=== PATIENT | female | born 1955 | race African-American/Black ===

== ENCOUNTER 2017-06-04 07:30 | Observation (INO) | payer OTHER ==
[~2017-06-04] VITALS: Ht 160 cm; Wt 123.3 kg
[~2017-06-04 07:30] MED LIST: HYDR-3498 PO
[2017-06-04 20:28] VITALS: Ht 160 cm; Wt 123.3 kg
[2017-06-04 21:10] VITALS: BP 122/62; RESP 16
[2017-06-04] MEDS ORDERED: CYCL-319 PO (21:40)
--- NOTE | 2017-06-04 21:51 | HP ---
Date/Time of Note Date/Time of Note DATE: 06/04/17 TIME: 21:51 Assessment/Plan VTE Prophylaxis VTE Prophylaxis Intervention: LMWH Assessment/Plan Chief Complaint/Hosp Course This is a 61 year female was given be admitted to the [facility] for: #1 intractable back pain: There is to be nontraumatic back pain in nature. Patient has a previous history of spinal surgery history of leukemia which does raise concern for weakness of her spinal bones as well as possible concern for metastasis. At the current time will order an MRI of the lumbar spine with and without contrast. Will provide IV pain medication control with Dilaudid every 4 hours as needed and oral Percocet. Will also provide the patient with Flexeril. Will obtain a orthopedic surgery consult. PT evaluation. #2 history of leukemia: Not undergoing any active treatment at this time. Please see #1 further information. #3 morbid obesity: We will check a hemoglobin A1c, lipids, TSH #4 right meniscus injury: Patient has meniscal surgery scheduled for next week and she was supposed to have her preop clearance today as an outpatient. Will order preop labs as well as an EKG and consider evaluation for surgical clearance in the a.m. #5 DVT and GI prophylaxis: Lovenox, acid consuelo Further treatment strategy will be implemented as per the clinical Problems: HPI/ROS Admit Date/Time Admit Date/Time Jun 04, 2017 at 07:30 Hx of Present Illness Chief complaint: Intractable back pain, difficulty walking This is a 61-year-old female who was transferred from [facility] for intractable lower back pain radiating down to bilateral lower legs. Patient states that she was unable to walk secondary to her pain. Her pain is 10 out of 10 and worse with movement. She states that she has had previously pain radiating down her right leg, however at this time patient states that she has pain in a bandlike sensation along her lower back with pain radiating down her legs posteriorly as well as anteriorly on her pelvis. She denies any urinary incontinence or saddle anesthesia. Patient states that she has had previous history of back surgeries. 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 She has a previous history of leukemia. She also has been diagnosed with sciatic nerve pain for this feels worse than the pain at this time. She is going to be undergoing the meniscal surgery for her right meniscus in 1 week and she was supposed to go today to have clearance for the surgery however she was unable to walk she taken to the ED via ambulance. She also states she had an MRI of her lumbar spine but she does not know what the results are which occurred approximately 2 weeks ago. And today and her dysfunction are a lot worse and there were 2 weeks ago. She did receive Decadron 10mg, morphine 8mg, and Dilaudid 1 mg for pain control prior to being transferred to [facility]. Allergies: Sulfa Patient: See JENNIFER TAYLOR Const: Negative for fever, chills, weight gain or weight loss, fatigue, or diaphoresis Eyes : No pain discharge or redness or change in visual acuity ENT: No pain, sore throat, congestion, congestion, dysphagia or discharge Respiratory: No shortness of breath, cough, sputum, wheezing, or pleuritic pain Cardiovascular: No chest pain, palpitation, PND, or edema GI : no change in appetite, abdominal pain, nausea, vomiting, diarrhea, constipation, or change in the color his stool Genitourinary: No dysuria, hematuria, flank pain , discharge or CVA tenderness Musculoskeletal: As per HPI Skin: No rash, bruising or hives Neuro: As per HPI Endocrine: No polyuria, polydipsia, temperature intolerance Psych: No hallucination, depression, anxiety or suicidal ideation PMH/Family/Social Past Medical History Leukemia, 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 HEENT: Atraumatic, normocephalic. The pupils are equal, round and reactive. Extraocular motor are intact Neck: Supple with full range of motion. No rigidity or meningismus Chest: Nontender Lungs: Clear to auscultation bilaterally no crackles rales or wheezing Heart: Normal S1-S2, Regular rhythm and rate. No murmur, S3, or S4 Abdomen: Soft , nontender, nondistended , bowel sounds are present. No guarding no rebound tenderness , No masses or organomegaly. No costovertebral temporal angle mass Musculoskeletal: Tenderness to palpation along the lower lumbar spine as well as a bilateral paravertebral muscles at the level of the lumbar spine. Extremities: Decreased range of motion of the bilateral lower extremities, patient unable to get in a seated or standing position secondary to pain Neurologic: Normal mental status, speech normal, cranial nerves II through XII are intact, motor and sensory are intact, Additional Comments Lab results from transfer facility as follows BMP sodium 142, potassium 4.4 chloride 106 CO2 26 BUN 16 creatinine 0.72 glucose 139 calcium 9.1 CBC hemoglobin 13.4 hematocrit 40.1 platelets 157, white blood cell count 6.1 JACK ABRAMS Jun 04, 2017 21:51
[2017-06-04] MEDS ORDERED: HYDROmorphONE 1 MG/ML SYG IV PRN (22:00)
[2017-06-04] MEDS ORDERED: CYCLOBENZAPRINE 10 MG TAB PO PRN (22:00)
[2017-06-04] MEDS: DOCUSATE SODIUM 100 MG CAP PO SCH (22:11)
[2017-06-04 23:03] LABS: INR 1.16; PROTIME 14.8 Sec (12.2-14.2); PT RATIO 1.2
[2017-06-04 23:04] LABS: PARTIAL THROMBOPLASTIN TIME 31.5 Sec (25.0-35.0)
[2017-06-04] MEDS: CYCLOBENZAPRINE 10 MG TAB PO PRN (23:11)
[2017-06-05] MEDS: ONDANSETRON 4 MG INJ IV PRN (00:13)
[2017-06-05] MEDS: DIPHENHYDRAMINE 25 MG CAP PO PRN ×3 (00:45→22:57)
[2017-06-05] MEDS: HYDROmorphONE 1 MG/ML SYG IV PRN ×6 (01:30→22:50)
[2017-06-05] MEDS ORDERED: ACETAMINOPHEN 325 MG TAB PO PRN (02:30)
[2017-06-05 05:22] VITALS: BP 111/64; RESP 18
[2017-06-05 05:54] LABS: HEMATOCRIT 39.6 % (37.0-47.0); HEMOGLOBIN 12.8 g/dl (12.0-16.0); LYMPHOCYTES # 0.9 10^3/ul (0.8-2.9); LYMPHOCYTES % 14.3 % (15.0-51.0); MEAN CORPUSCULAR HEMOGLOBIN 29.2 pg (29.0-33.0); MEAN CORPUSCULAR HGB CONC 32.3 g/dl (32.0-37.0); MEAN CORPUSCULAR VOLUME 90.2 fl (82.0-101.0); MEAN PLATELET VOLUME 10.4 fl (7.4-10.4); MONOCYTE # 0.2 10^3/ul (0.3-0.9); MONOCYTES % 3.3 % (0.0-11.0); NEUTROPHILS % 82.2 % (39.0-77.0); PLATELET COUNT 169 10^3/UL (140-415); RED BLOOD COUNT 4.39 10^6/ul (4.20-5.40); RED CELL DISTRIBUTION WIDTH 13.1 % (11.5-14.5); WHITE BLOOD COUNT 6.4 10^3/ul (4.8-10.8)
[2017-06-05 06:22] LABS: ALBUMIN/GLOBULIN RATIO 1.08; BILIRUBIN,INDIRECT 0.3 mg/dl (0-1.1); BILIRUBIN,TOTAL 0.3 mg/dl (0.2-1.3); CALCIUM 9.1 mg/dl (8.4-10.2); CHOL/HDL RATIO 3.9 RATIO; CREATININE 0.82 mg/dl (0.44-1.00); MAGNESIUM 2.2 mg/dl (1.7-2.5); POTASSIUM 4.5 mmol/L (3.5-5.1); TOTAL PROTEIN 7.7 g/dl (6.1-8.1)
[2017-06-05 07:00] VITALS: BP 111/60; PULSE 64; RESP 18
[2017-06-05 07:34] LABS: THYROID STIMULATING HORMONE 0.207 MIU/L (0.465-4.680)
[2017-06-05] MEDS: BISACODYL (EC) 5 MG TAB PO SCH (08:38)
[2017-06-05] MEDS: OXYCODONE/ACETAMINOPHEN (10/325) TAB PO PRN (08:38)
[2017-06-05] MEDS: FAMOTIDINE 20 MG TAB PO SCH ×2 (08:38→22:50)
[2017-06-05] MEDS: ENOXAPARIN 40 MG/0.4 ML SYG SC SCH (08:40)
[2017-06-05] MEDS: DOCUSATE SODIUM 100 MG CAP PO SCH ×2 (10:23→22:50)
[2017-06-05 12:36] VITALS: BP 110/61; RESP 20
--- NOTE | 2017-06-05 16:58 | PN ---
Date/Time of Note Date/Time of Note DATE: 06/05/17 TIME: 16:47 Assessment/Plan VTE Prophylaxis VTE Prophylaxis Intervention: LMWH Lines/Catheters IV Catheter Type (from Nrsg): Saline Lock Assessment/Plan Assessment/Plan 1. 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 Pruritus - Patient states has had pain medication in the past and does not believe this is contributing - Benadryl ordered - If persists will need to readjust her medications 3. H/o leukemia - she was treated 12 years ago and in remission but always concerns of reoccurrence in spine 4. Morbid obesity - Patient aware she needs to lose weight and requesting nutrition consult 5. Left meniscus injury - Scheduled for next Friday Subjective 24 Hr Interval Summary Free Text/Dictation patient seen and examined. Experiencing pain when adjusting herself in the bed. states its a sharp pain that shoots down her right leg but denies any bowel or bladder incontinence. Patient is a very active woman and frustrated that she is being debilitated by her back pain. Exam/Review of Systems Vital Signs Vitals Vital Signs Date Time Temp Pulse Resp B/P Pulse Ox O2 Delivery O2 Flow Rate FiO2 06/05/17 12:36 97.6 64 20 110/61 96 06/05/17 07:00 Room Air Intake and Output 06/04/17 06/04/17 06/05/17 15:00 23:00 07:00 Intake Total 400 ml Balance 400 ml Exam General: moderate distress with movement, pleasant and cooperative HEENT: NC/AT, PERRL, EOM intact Neck: Supple with full range of motion. No rigidity or meningismus Lungs: Clear to auscultation bilaterally no crackles rales or wheezing Heart: Normal S1-S2, Regular rhythm and rate. No murmur Abdomen: Soft , nontender, nondistended , No guarding no rebound tenderness , Musculoskeletal: Tenderness to palpation along the lower lumbar spine, tenderness of bilateral paravertebral muscles at the level of the lumbar spine. Extremities: Decreased range of motion of the bilateral lower extremities, Neurologic: Normal mental status, speech normal, cranial nerves II through XII are intact, motor and sensory are intact, reflexes diminished RLE Results Result Diagram: 06/05/17 0509 06/05/17 0509 Results 24 hrs Laboratory Tests Test 06/04/17 22:42 06/05/17 05:09 Prothrombin Time 14.8 H Prothrombin Time Ratio 1.2 INR International Normalized Ratio 1.16 Activated Partial Thromboplast Time 31.5 White Blood Count 6.4 Red Blood Count 4.39 Hemoglobin 12.8 Hematocrit 39.6 Mean Corpuscular Volume 90.2 Mean Corpuscular Hemoglobin 29.2 Mean Corpuscular Hemoglobin Concent 32.3 Red Cell Distribution Width 13.1 Platelet Count 169 Mean Platelet Volume 10.4 Neutrophils % 82.2 H Lymphocytes % 14.3 L Monocytes % 3.3 Eosinophils % 0.0 Basophils % 0.0 Nucleated Red Blood Cells % 0.0 Neutrophils # (Manual) 5.3 Lymphocytes # 0.9 Monocytes # 0.2 L Eosinophils # 0.0 Basophils # 0.0 Nucleated Red Blood Cells # 0.0 Sodium Level 143 Potassium Level 4.5 Chloride Level 109 Carbon Dioxide Level 24 Anion Gap 15 Blood Urea Nitrogen 21 H Creatinine 0.82 Glucose Level 149 Hemoglobin A1c 5.7 Calcium Level 9.1 Magnesium Level 2.2 Total Bilirubin 0.3 Direct Bilirubin 0.00 Indirect Bilirubin 0.3 Aspartate Amino Transf (AST/SGOT) 17 Alanine Aminotransferase (ALT/SGPT) 23 Alkaline Phosphatase 80 Total Protein 7.7 Albumin 4.0 Globulin 3.70 H Albumin/Globulin Ratio 1.08 Triglycerides Level 56 Cholesterol Level 211 H LDL Cholesterol, Calculated 147 HDL Cholesterol 53 Cholesterol/HDL Ratio 3.9 Thyroid Stimulating Hormone (TSH) 0.207 L Medications Medications Current Medications Ondansetron HCl (Zofran Inj) 4 mg Q6H PRN IV NAUSEA AND/OR VOMITING Last administered on 06/05/17 00:13; Admin Dose 4 MG; Start 06/04/17 at 22:00 Docusate Sodium (Colace) 100 mg Q12H PO Last administered on 06/05/17 10:23; Admin Dose 100 MG; Start 06/04/17 at 22:00 Bisacodyl (Dulcolax) 5 mg DAILY PO Last administered on 06/05/17 08:38; Admin Dose 5 MG; Start 06/05/17 at 09:00 Famotidine (Pepcid) 20 mg Q12 PO Last administered on 06/05/17 08:38; Admin Dose 20 MG; Start 06/05/17 at 09:00 Oxycodone/ Acetaminophen (Endocet (10/ 325)) 1 tab Q6H PRN PO PAIN LEVEL 4-6 Last administered on 06/05/17 08:38; Admin Dose 1 TAB; Start 06/04/17 at 22:00 Enoxaparin Sodium (Lovenox) 40 mg DAILY SC Last administered on 06/05/17 08:40 ; Admin Dose 40 MG; Start 06/05/17 at 09:00 Cyclobenzaprine HCl (Flexeril) 10 mg Q8H PRN PO MUSCLE SPASMS Last administered on 06/04/17 23:11; Admin Dose 10 MG; Start 06/04/17 at 22:00 Hydromorphone HCl (Dilaudid) 1 mg Q3H PRN IV SEVERE PAIN LEVEL 7-10 Last administered on 06/05/17 13:55; Admin Dose 1 MG; Start 06/05/17 at 00:40 Acetaminophen (Tylenol Tab) 650 mg Q6H PRN PO PAIN AND OR ELEVATED TEMP; Start 06/05/17 at 02:30 Diphenhydramine HCl (Benadryl) 25 mg Q4 PRN PO ITCHING; Start 06/05/17 at 17:00 ; Status RUBÉN VICTOR MD Jun 05, 2017 16:58
[2017-06-05 17:03] VITALS: BP 103/59; RESP 20
--- NOTE | 2017-06-05 19:35 | RADRPT ---
Vent Rate: 61 bpm RR Interval: 0 msec FL Interval: 164 msec QRS Duration: 86 msec QT Interval: 416 msec QTC Interval: 418 msec P-R-T [place]: 58 - 31 - 39 degrees Normal sinus rhythm Minimal voltage criteria for LVH, may be normal variant Nonspecific T wave abnormality Abnormal ECG Electronically Signed By: Ac Carey [id number]
[2017-06-05 21:02] VITALS: BP 132/63; RESP 16
--- NOTE | 2017-06-05 23:23 | RADRPT ---
PROCEDURE: MRI lumbar spine with and without contrast CLINICAL INDICATION: Intractable back pain with ambulatory dysfunction. Bilateral lower extremity radiculopathy. Back surgery 2003 and 2004. TECHNIQUE: An MRI of the lumbar spine was performed on a 1.5 tank scanner utilizing the followin g sequences: pre and post contrast sagittal and axial T1 weighted, sagittal and axial T2 weighted, a nd sagittal T2 weighted with fat saturation. 10 ml of Magnevist were given intravenously without com plication. COMPARISON: No prior MRI for comparison. FINDINGS: There is a normal lordosis of the lumbar spine. No vertebral body subluxation is evident. The verteb ral bodies are normal in height and signal intensity. The conus medullaris is visible at the L1 lev el, and is normal in appearance. The postcontrast images show no abnormal enhancement. T12 - L1: Mild disc desiccation and loss of disc height with Schmorl's node formation within the kline perior small subarticular disc protrusion measuring 1-2 mm in AP dimension. Mild facet joint arthrop athy. Moderate to severe left foraminal stenosis without right foraminal or central canal stenosis. Mild facet joint arthropathy. L1 - L2: Mild disc desiccation with preservation of disc height. Minimal posterior disc bulging. Mo derate hypertrophic facet joint arthropathy. Mild to moderate bilateral foraminal stenosis. No centr al canal stenosis. Small facet joint effusions. L2-L3: Moderate disc desiccation and mild loss of disc height with Schmorl's node formation in the superior endplate of L3. Minimal broad-based right subarticular disc protrusion measuring 2 mm in AP dimension. Mild bilateral subarticular recess narrowing possible impingement upon descending L3 ner ve roots bilaterally. No central canal stenosis. Mild to moderate bilateral foraminal stenosis. No c entral canal stenosis. L3 - L4: Severe disc desiccation loss of disc height with broad-based central to left subarticular d isc osteophyte complex formation resulting in severe left subarticular recess and foraminal stenosis with impinging upon the descending L4 and exiting L3 nerve roots. Right foraminal 7 mm disc osteoph yte complex resulting in severe right foraminal stenosis and moderate subarticular recess stenosis r ight L3 and likely descending L4 nerve roots. Severe hypertrophic facet joint arthropathy. Mild to m oderate central canal stenosis of 12 mm in greatest transaxial dimension. L4 - L5: Grade 1 anterolisthesis of the L4-L5 with intact bipedicular vertebral body screws, fusion rods, and interbody bone graft. Severe hypertrophic facet joint arthropathy and severe central yehuda l stenosis of approximately 4 mm in greatest transaxial dimension. Mild bilateral foraminal stenosis . L5 - S1: Intact bipedicular vertebral body screws and fusion rods with decompression laminectomy and hypertrophic facet joint arthropathy. No central canal stenosis. Severe hypertrophic facet joint ar thropathy with severe bilateral foraminal stenosis. Postsurgical changes of the midline posterior soft tissues IMPRESSION: 1. Lumbar discectomy with interbody fusion and intact by pedicular vertebral body screws and fusion rods at L4-L5. Grade 1 anterolisthesis of L4-L5 with intact interbody bone graft. Severe central ca nal stenosis with mild bilateral foraminal stenosis. 2. Intact bipedicular vertebral body screws and fusion rods with decompression laminectomy at L5-S1 . Severe hypertrophic facet joint arthropathy and severe bilateral foraminal stenosis without centra l canal stenosis. 3. Degenerative disc bulging with the broad-based central to left subarticular disc osteophyte comp chon and 7 mm right foraminal disc osteophyte complex resulting in severe left subarticular recess an d foraminal stenosis and moderate right subarticular and severe right foraminal stenosis as describe d in detail above. 4. Minimal broad-based right subarticular protrusion at L2-L3 with bilateral subarticular recess shiva nosis resulting in mild to moderate bilateral foraminal stenosis without central canal stenosis. 5. No abnormal postcontrast enhancement. RPTAT:AAJJ Physician Sunitha Date Time Electronically viewed and signed by Physician Sunitha on 06/05/2017 23:23 MONY/
[2017-06-06] MEDS: HYDROmorphONE 1 MG/ML SYG IV PRN ×6 (02:10→21:12)
[2017-06-06 03:16] VITALS: BP 114/56; RESP 16
[2017-06-06] MEDS: DIPHENHYDRAMINE 25 MG CAP PO PRN ×2 (03:26→08:56)
[2017-06-06 06:41] LABS: BASOPHILS % 0.1 % (0.0-2.0); EOSINOPHILS % 0.3 % (0.0-7.0); HEMATOCRIT 37.2 % (37.0-47.0); HEMOGLOBIN 11.8 g/dl (12.0-16.0); LYMPHOCYTES # 2.8 10^3/ul (0.8-2.9); LYMPHOCYTES % 37.8 % (15.0-51.0); MEAN CORPUSCULAR HEMOGLOBIN 29.3 pg (29.0-33.0); MEAN CORPUSCULAR HGB CONC 31.7 g/dl (32.0-37.0); MEAN CORPUSCULAR VOLUME 92.3 fl (82.0-101.0); MEAN PLATELET VOLUME 10.4 fl (7.4-10.4); MONOCYTE # 0.6 10^3/ul (0.3-0.9); MONOCYTES % 7.8 % (0.0-11.0); NEUTROPHILS % 53.7 % (39.0-77.0); PLATELET COUNT 159 10^3/UL (140-415); RED BLOOD COUNT 4.03 10^6/ul (4.20-5.40); RED CELL DISTRIBUTION WIDTH 13.7 % (11.5-14.5); WHITE BLOOD COUNT 7.5 10^3/ul (4.8-10.8)
[2017-06-06 07:11] LABS: ALBUMIN 3.8 g/dl (3.3-4.9); CALCIUM 8.5 mg/dl (8.4-10.2); CREATININE 0.93 mg/dl (0.44-1.00); PHOSPHORUS 4.6 mg/dl (2.5-4.9); POTASSIUM 4.3 mmol/L (3.5-5.1)
[2017-06-06 07:56] VITALS: BP 102/56; RESP 17
[2017-06-06] MEDS: BISACODYL (EC) 5 MG TAB PO SCH (08:55)
[2017-06-06] MEDS: NACL 0.9% 3 ML SYG IV SCH ×2 (08:55→12:42)
[2017-06-06] MEDS: FAMOTIDINE 20 MG TAB PO SCH ×2 (08:55→21:11)
[2017-06-06] MEDS: ENOXAPARIN 40 MG/0.4 ML SYG SC SCH (08:59)
[2017-06-06] MEDS: DOCUSATE SODIUM 100 MG CAP PO SCH ×2 (09:01→21:12)
[2017-06-06] MEDS: DIPHENHYDRAMINE 50 MG INJ IV PRN ×3 (14:16→22:01)
[2017-06-06] MEDS: CYCLOBENZAPRINE 10 MG TAB PO PRN ×2 (14:30→22:43)
[2017-06-06 15:40] VITALS: BP 139/67; RESP 18
[2017-06-06] MEDS: METHYLPREDNISOLONE 125 MG INJ IV SCH (15:43)
[2017-06-06] MEDS: CAPSAICIN 0.025% 60 GM CR TOP PRN ×2 (15:44→22:15)
--- NOTE | 2017-06-06 17:50 | PN ---
Date/Time of Note Date/Time of Note DATE: 06/06/17 TIME: 17:45 Assessment/Plan VTE Prophylaxis VTE Prophylaxis Intervention: LMWH Lines/Catheters IV Catheter Type (from Nrsg): Saline Lock Assessment/Plan Assessment/Plan 1. 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 Grade 1 anterolisthesis of L4-L5 with intact interbody bone graft. Severe central canal stenosis with mild bilateral foraminal stenosis. Intact bipedicular vertebral body screws and fusion rods with decompression laminectomy at L5-S1. Severe hypertrophic facet joint arthropathy and severe bilateral foraminal stenosis without central canal stenosis. Degenerative disc bulging with the broad-based central to left subarticular disc osteophyte complex and 7 mm right foraminal disc osteophyte complex resulting in severe left subarticular recess and foraminal stenosis and moderate right subarticular and severe right foraminal stenosis as described in detail above. Minimal broad-based right subarticular protrusion at L2-L3 with bilateral subarticular recess stenosis resulting in mild to moderate bilateral foraminal stenosis without central canal stenosis. - Started on Solumedrol for disc bulge and Ketoralac as antiinflammatory - Continue pain control, if need be will consult pain management for assistance for senior living control - Will order PT eval 2. Pruritus - Patient states has had pain medication in the past and does not believe this is contributing - Benadryl IV with relief 3. H/o leukemia - she was treated 12 years ago and in remission but always concerns of reoccurrence in spine 4. Morbid obesity - Patient aware she needs to lose weight and requesting nutrition consult 5. Left meniscus injury - Scheduled for next Friday - Needs CXR for preop Subjective 24 Hr Interval Summary Free Text/Dictation Patient seen and examined. States shes feeling a little better and stronger as she is able to sit on the side of the bed today. She is anxious to get moving with physical therapy. Denies any loss of bladder or bowel. No new acute issues or overnight events. Exam/Review of Systems Vital Signs Vitals Vital Signs Date Time Temp Pulse Resp B/P Pulse Ox O2 Delivery O2 Flow Rate FiO2 06/06/17 15:40 98.0 63 18 139/67 98 06/05/17 07:00 Room Air Intake and Output 06/05/17 06/05/17 06/06/17 15:00 23:00 07:00 Intake Total 840 ml 620 ml Balance 840 ml 620 ml Exam General: mild distress with movement, pleasant and cooperative HEENT: NC/AT, PERRL, EOM intact Neck: Supple with full range of motion. No rigidity or meningismus Lungs: Clear to auscultation bilaterally no crackles rales or wheezing Heart: Normal S1-S2, Regular rhythm and rate. No murmur Abdomen: Soft , nontender, nondistended , No guarding no rebound tenderness , Musculoskeletal: Tenderness to palpation along the lower lumbar spine, tenderness of bilateral paravertebral muscles at the level of the lumbar spine. Extremities: Decreased range of motion of the bilateral lower extremities, Neurologic: Normal mental status, speech normal, cranial nerves II through XII are intact, motor and sensory are intact, reflexes diminished RLE Results Result Diagram: 06/06/17 0548 06/06/17 0548 Results 24 hrs Laboratory Tests Test 06/06/17 05:48 White Blood Count 7.5 Red Blood Count 4.03 L Hemoglobin 11.8 L Hematocrit 37.2 Mean Corpuscular Volume 92.3 Mean Corpuscular Hemoglobin 29.3 Mean Corpuscular Hemoglobin Concent 31.7 L Red Cell Distribution Width 13.7 Platelet Count 159 Mean Platelet Volume 10.4 Neutrophils % 53.7 Lymphocytes % 37.8 Monocytes % 7.8 Eosinophils % 0.3 Basophils % 0.1 Nucleated Red Blood Cells % 0.0 Neutrophils # (Manual) 4.0 Lymphocytes # 2.8 Monocytes # 0.6 Eosinophils # 0.0 Basophils # 0.0 Nucleated Red Blood Cells # 0.0 Sodium Level 139 Potassium Level 4.3 Chloride Level 103 Carbon Dioxide Level 30 Anion Gap 10 # Blood Urea Nitrogen 26 H Creatinine 0.93 Glucose Level 97 # Calcium Level 8.5 Phosphorus Level 4.6 Magnesium Level 2.0 Albumin 3.8 Medications Medications Current Medications Ondansetron HCl (Zofran Inj) 4 mg Q6H PRN IV NAUSEA AND/OR VOMITING Last administered on 06/05/17t 00:13; Admin Dose 4 MG; Start 06/04/17 at 22:00 Docusate Sodium (Colace) 100 mg Q12H PO Last administered on 06/06/17 09:01; Admin Dose 100 MG; Start 06/04/17 at 22:00 Bisacodyl (Dulcolax) 5 mg DAILY PO Last administered on 06/06/17 08:55; Admin Dose 5 MG; Start 06/05/17 at 09:00 Famotidine (Pepcid) 20 mg Q12 PO Last administered on 06/06/17 08:55; Admin Dose 20 MG; Start 06/05/17 at 09:00 Oxycodone/ Acetaminophen (Endocet (10/ 325)) 1 tab Q6H PRN PO PAIN LEVEL 4-6 Last administered on 06/05/17 08:38; Admin Dose 1 TAB; Start 06/04/17 at 22:00 Enoxaparin Sodium (Lovenox) 40 mg DAILY SC Last administered on 06/06/17 08:59 ; Admin Dose 40 MG; Start 06/05/17 at 09:00 Cyclobenzaprine HCl (Flexeril) 10 mg Q8H PRN PO MUSCLE SPASMS Last administered on 06/06/17 14:30; Admin Dose 10 MG; Start 06/04/17 at 22:00 Hydromorphone HCl (Dilaudid) 1 mg Q3H PRN IV SEVERE PAIN LEVEL 7-10 Last administered on 06/06/17 15:49; Admin Dose 1 MG; Start 06/05/17 at 00:40 Acetaminophen (Tylenol Tab) 650 mg Q6H PRN PO PAIN AND OR ELEVATED TEMP; Start 06/05/17 at 02:30 Capsaicin (Theragen) 1 applic TID PRN TOP knee pain Last administered on 15:44; Admin Dose 1 APPLIC; Start 06/05/17 at 17:00 Diphenhydramine HCl (Benadryl) 25 mg Q4H PRN IV ITCHING Last administered on 14:16; Admin Dose 25 MG; Start 06/06/17 at 14:30 Methylprednisolone Sodium Succinate (Solu-Medrol) 60 mg DAILY IV Last administered on 06/06/17 15:43; Admin Dose 60 MG; Start 06/06/17 at 15:30 Nystatin (Nystatin Oint) 1 applic BID TOP ; Start 06/06/17 at 15:30 RUBÉN HAMILTON MD Jun 06, 2017 17:50
[2017-06-06] MEDS: NYSTATIN 15 GM OINT TOP SCH ×2 (17:51→21:12)
[2017-06-06] MEDS: KETOROLAC 30 MG INJ IV SCH ×2 (18:04→23:42)
[2017-06-06 19:50] VITALS: BP 127/76; RESP 20
[2017-06-07] MEDS ORDERED: BISACODYL 10 MG SUPP PR PRN (01:00)
[2017-06-07 02:00] VITALS: BP 124/62; RESP 20
[2017-06-07] MEDS: HYDROmorphONE 1 MG/ML SYG IV PRN ×7 (02:00→23:52)
[2017-06-07] MEDS: CAPSAICIN 0.025% 60 GM CR TOP PRN (03:04)
[2017-06-07] MEDS: DIPHENHYDRAMINE 50 MG INJ IV PRN ×5 (03:05→22:22)
[2017-06-07] MEDS: POLYETHYLENE GLYCOL 17 GM PACKET PO PRN (05:08)
[2017-06-07] MEDS: KETOROLAC 30 MG INJ IV SCH ×3 (05:48→18:00)
[2017-06-07] MEDS: ONDANSETRON 4 MG INJ IV PRN ×2 (05:52→18:50)
[2017-06-07 06:56] LABS: ALBUMIN 3.9 g/dl (3.3-4.9); CALCIUM 9.1 mg/dl (8.4-10.2); CREATININE 0.83 mg/dl (0.44-1.00); MAGNESIUM 2.1 mg/dl (1.7-2.5); PHOSPHORUS 4.9 mg/dl (2.5-4.9); POTASSIUM 4.6 mmol/L (3.5-5.1)
[2017-06-07 08:06] VITALS: BP 111/56; RESP 18
[2017-06-07] MEDS: FAMOTIDINE 20 MG TAB PO SCH ×2 (08:13→20:44)
[2017-06-07] MEDS: NYSTATIN 15 GM OINT TOP SCH ×2 (08:13→20:44)
[2017-06-07] MEDS: BISACODYL (EC) 5 MG TAB PO SCH (08:13)
[2017-06-07] MEDS: METHYLPREDNISOLONE 125 MG INJ IV SCH (08:13)
[2017-06-07] MEDS: ENOXAPARIN 40 MG/0.4 ML SYG SC SCH (08:18)
[2017-06-07] MEDS: DOCUSATE SODIUM 100 MG CAP PO SCH ×2 (09:43→22:22)
[2017-06-07] MEDS: CYCLOBENZAPRINE 10 MG TAB PO PRN (09:45)
[2017-06-07] MEDS: OXYCODONE/ACETAMINOPHEN (10/325) TAB PO PRN (14:07)
[2017-06-07] MEDS: SENNA/DOCUSATE NA (8.6MG/50MG) TAB PO SCH ×2 (15:06→20:44)
[2017-06-07] MEDS: LIDOCAINE 5% PATCH TD SCH (15:06)
--- NOTE | 2017-06-07 15:06 | PN ---
Date/Time of Note Date/Time of Note DATE: 06/07/17 TIME: 15:00 Assessment/Plan VTE Prophylaxis VTE Prophylaxis Intervention: LMWH Lines/Catheters IV Catheter Type (from Nrsg): Saline Lock Assessment/Plan Assessment/Plan 1. Intractable back pain with sciatica - She has a history of spinal surgery with hardware in place that was performed years ago at 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 Grade 1 anterolisthesis of L4-L5 with intact interbody bone graft. Severe central canal stenosis with mild bilateral foraminal stenosis. Intact bipedicular vertebral body screws and fusion rods with decompression laminectomy at L5-S1. Severe hypertrophic facet joint arthropathy and severe bilateral foraminal stenosis without central canal stenosis. Degenerative disc bulging with the broad-based central to left subarticular disc osteophyte complex and 7 mm right foraminal disc osteophyte complex resulting in severe left subarticular recess and foraminal stenosis and moderate right subarticular and severe right foraminal stenosis as described in detail above. Minimal broad-based right subarticular protrusion at L2-L3 with bilateral subarticular recess stenosis resulting in mild to moderate bilateral foraminal stenosis without central canal stenosis. - Started on Solumedrol for disc bulge and Ketoralac as antiinflammatory. Will taper steroids - Continue pain control, if need be will consult pain management for assistance for bed bug exterminator control - Lidoderm patch to lumber spine - Will order Flexeril TID straight dose rather than PRN - Start on Gabapentin 300mg QHS for sciatica 2. Constipation - Miralax and Senna S BID 3. H/o leukemia - she was treated 12 years ago and in remission but always concerns of reoccurrence in spine 4. Morbid obesity - Patient aware she needs to lose weight and appreciate assistance from dry chain offbearer 5. Left meniscus injury - Scheduled for next Friday - Needs CXR for preop 6. Disposition - Switch to PO prednisone tmrw - If improving with possibly d/c - will arrange for HHPT and skilled PT - FWW as well Subjective 24 Hr Interval Summary Free Text/Dictation Patient states shes feeling slightly better and able to move with less pain. Concerned that she has not been having regular BMs and requesting stool softner. 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 Denies any fevers, chills, bowel or bladder incontinence, chest pain, or SOB. Her main goal is to lose weight, eat more healthy, and feel better. Exam/Review of Systems Vital Signs Vitals Vital Signs Date Time Temp Pulse Resp B/P Pulse Ox O2 Delivery O2 Flow Rate FiO2 06/07/17 08:06 97.5 52 18 111/56 94 06/05/17 07:00 Room Air Intake and Output 06/06/17 06/06/17 06/07/17 14:59 22:59 06:59 Intake Total 1680 ml 850 ml Balance 1680 ml 850 ml Exam General: Improvement in ROM, pleasant and cooperative HEENT: NC/AT, PERRL, EOM intact Neck: Supple with full range of motion. No rigidity or meningismus Lungs: Clear to auscultation bilaterally no crackles rales or wheezing Heart: Normal S1-S2, Regular rhythm and rate. No murmur Abdomen: Soft , nontender, nondistended , No guarding no rebound tenderness , Musculoskeletal: Tenderness to palpation along the lower lumbar spine, tenderness of bilateral paravertebral muscles at the level of the lumbar spine. Extremities: Decreased range of motion of the bilateral lower extremities, Neurologic: Normal mental status, speech normal, cranial nerves II through XII are intact, motor and sensory are intact, reflexes diminished RLE Results Result Diagram: 06/06/17 0548 06/07/17 0555 Results 24 hrs Laboratory Tests Test 06/07/17 05:55 Sodium Level 139 Potassium Level 4.6 Chloride Level 106 Carbon Dioxide Level 25 Anion Gap 13 Blood Urea Nitrogen 28 H Creatinine 0.83 Glucose Level 122 Calcium Level 9.1 Phosphorus Level 4.9 Magnesium Level 2.1 Albumin 3.9 Medications Medications Current Medications Ondansetron HCl (Zofran Inj) 4 mg Q6H PRN IV NAUSEA AND/OR VOMITING Last administered on 06/07/17 05:52; Admin Dose 4 MG; Start 06/04/17 at 22:00 Docusate Sodium (Colace) 100 mg Q12H PO Last administered on 06/07/17 09:43; Admin Dose 100 MG; Start 06/04/17 at 22:00 Bisacodyl (Dulcolax) 5 mg DAILY PO Last administered on 06/07/17 08:13; Admin Dose 5 MG; Start 06/05/17 at 09:00 Famotidine (Pepcid) 20 mg Q12 PO Last administered on 06/07/17 08:13; Admin Dose 20 MG; Start 06/05/17 at 09:00 Oxycodone/ Acetaminophen (Endocet (10/ 325)) 1 tab Q6H PRN PO PAIN LEVEL 4-6 Last administered on 06/07/17 14:07; Admin Dose 1 TAB; Start 06/04/17 at 22:00 Enoxaparin Sodium (Lovenox) 40 mg DAILY SC Last administered on 06/07/17 08:18 ; Admin Dose 40 MG; Start 06/05/17 at 09:00 Hydromorphone HCl (Dilaudid) 1 mg Q3H PRN IV SEVERE PAIN LEVEL 7-10 Last administered on 06/07/17 12:34; Admin Dose 1 MG; Start 06/05/17 at 00:40 Acetaminophen (Tylenol Tab) 650 mg Q6H PRN PO PAIN AND OR ELEVATED TEMP; Start 06/05/17 at 02:30 Capsaicin (Theragen) 1 applic TID PRN TOP knee pain Last administered on 03:04; Admin Dose 1 APPLIC; Start 06/05/17 at 17:00 Diphenhydramine HCl (Benadryl) 25 mg Q4H PRN IV ITCHING Last administered on 14:11; Admin Dose 25 MG; Start 06/06/17 at 14:30 Methylprednisolone Sodium Succinate (Solu-Medrol) 60 mg DAILY IV Last administered on 06/07/17 08:13; Admin Dose 60 MG; Start 06/06/17 at 15:30 Nystatin (Nystatin Oint) 1 applic BID TOP Last administered on 06/07/17 08:13; Admin Dose 1 APPLIC; Start 06/06/17 at 15:30 Ketorolac Tromethamine (Toradol) 30 mg Q6H IV Last administered on 06/07/17 11: 30; Admin Dose 30 MG; Start 06/06/17 at 18:00; Stop 06/09/17 at 18:00 Bisacodyl (Dulcolax Supp) 10 mg DAILY PRN [place] CONSTIPATION Last administered on 06/07/17 03:20; Admin Dose 10 MG; Start 06/07/17 at 01:00 Polyethylene Glycol (Miralax) 17 gm DAILY PRN PO CONSTIPATION Last administered on 06/07/17 05:08; Admin Dose 17 GM; Start 06/07/17 at 01:00 Miscellaneous Information Patients own medicat... BID@10,16 XX ; Start 06/07/17 at 10:00 Cyclobenzaprine HCl (Flexeril) 10 mg Q8H PO ; Start 06/07/17 at 22:00 Gabapentin (Neurontin) 300 mg QHS PO ; Start 06/07/17 at 21:00 Senna/Docusate Sodium (Senokot-S) 1 tab BID PO ; Start 06/07/17 at 15:00 Lidocaine (Lidoderm) 1 patch DAILY TD ; Start 06/07/17 at 15:00 RUBÉN HAMILTON MD Jun 07, 2017 15:06
[2017-06-07 20:00] VITALS: BP 133/64; RESP 19
[2017-06-07] MEDS: GABAPENTIN 300 MG CAP PO SCH (20:43)
[2017-06-07] MEDS: CYCLOBENZAPRINE 10 MG TAB PO SCH (22:22)
[2017-06-08] MEDS: KETOROLAC 30 MG INJ IV SCH ×4 (01:05→17:44)
[2017-06-08 02:00] VITALS: BP 126/66; RESP 19
[2017-06-08] MEDS: HYDROmorphONE 1 MG/ML SYG IV PRN ×5 (05:09→22:05)
[2017-06-08] MEDS: CYCLOBENZAPRINE 10 MG TAB PO SCH ×3 (05:09→22:05)
[2017-06-08 06:44] LABS: EOSINOPHILS % 0.1 % (0.0-7.0); HEMATOCRIT 36.5 % (37.0-47.0); HEMOGLOBIN 11.9 g/dl (12.0-16.0); LYMPHOCYTES # 2.3 10^3/ul (0.8-2.9); LYMPHOCYTES % 31.2 % (15.0-51.0); MEAN CORPUSCULAR HGB CONC 32.6 g/dl (32.0-37.0); MEAN CORPUSCULAR VOLUME 91.9 fl (82.0-101.0); MEAN PLATELET VOLUME 10.6 fl (7.4-10.4); MONOCYTE # 0.6 10^3/ul (0.3-0.9); MONOCYTES % 7.6 % (0.0-11.0); NEUTROPHILS % 60.4 % (39.0-77.0); PLATELET COUNT 172 10^3/UL (140-415); RED BLOOD COUNT 3.97 10^6/ul (4.20-5.40); RED CELL DISTRIBUTION WIDTH 13.2 % (11.5-14.5); WHITE BLOOD COUNT 7.3 10^3/ul (4.8-10.8)
[2017-06-08 08:09] LABS: ALBUMIN 3.3 g/dl (3.3-4.9); CALCIUM 8.9 mg/dl (8.4-10.2); MAGNESIUM 2.1 mg/dl (1.7-2.5); POTASSIUM 4.7 mmol/L (3.5-5.1)
[2017-06-08] MEDS: DIPHENHYDRAMINE 50 MG INJ IV PRN ×3 (08:17→20:04)
[2017-06-08] MEDS: LIDOCAINE 5% PATCH TD SCH (08:19)
[2017-06-08] MEDS: ENOXAPARIN 40 MG/0.4 ML SYG SC SCH (08:19)
[2017-06-08] MEDS: NYSTATIN 15 GM OINT TOP SCH ×2 (08:20→21:10)
[2017-06-08] MEDS: METHYLPREDNISOLONE 125 MG INJ IV SCH (08:20)
[2017-06-08] MEDS: FAMOTIDINE 20 MG TAB PO SCH ×2 (08:20→21:10)
[2017-06-08] MEDS: SENNA/DOCUSATE NA (8.6MG/50MG) TAB PO SCH ×2 (08:20→21:10)
[2017-06-08] MEDS: BISACODYL (EC) 5 MG TAB PO SCH (08:20)
[2017-06-08 08:24] LABS: FREE T3 2.81 pg/ml (2.77-5.27)
[2017-06-08 08:29] VITALS: BP 118/71; RESP 18
[2017-06-08] MEDS: DOCUSATE SODIUM 100 MG CAP PO SCH ×2 (11:32→22:05)
[2017-06-08] MEDS: ONDANSETRON 4 MG INJ IV PRN (11:45)
[2017-06-08] MEDS: OXYCODONE/ACETAMINOPHEN (10/325) TAB PO PRN (12:26)
[2017-06-08] MEDS ORDERED: WALK1EAC23 MC (13:39)
[2017-06-08 15:50] VITALS: BP 135/74; RESP 18
--- NOTE | 2017-06-08 18:17 | PN ---
Date/Time of Note Date/Time of Note DATE: 06/08/17 TIME: 18:09 Assessment/Plan VTE Prophylaxis VTE Prophylaxis Intervention: LMWH Lines/Catheters IV Catheter Type (from Nrsg): Saline Lock Assessment/Plan Assessment/Plan 1. 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 Hraris for assistance with pain management to anticipate discharge in the next 24-48hrs - MRI spine shows Lumbar discectomy with interbody fusion and intact by pedicular vertebral body screws and fusion rods at L4-L5. Grade 1 anterolisthesis of L4-L5 with intact interbody bone graft. Severe central canal stenosis with mild bilateral foraminal stenosis. Intact bipedicular vertebral body screws and fusion rods with decompression laminectomy at L5-S1. Severe hypertrophic facet joint arthropathy and severe bilateral foraminal stenosis without central canal stenosis. Degenerative disc bulging with the broad-based central to left subarticular disc osteophyte complex and 7 mm right foraminal disc osteophyte complex resulting in severe left subarticular recess and foraminal stenosis and moderate right subarticular and severe right foraminal stenosis as described in detail above. Minimal broad-based right subarticular protrusion at L2-L3 with bilateral subarticular recess stenosis resulting in mild to moderate bilateral foraminal stenosis without central canal stenosis. - Started on Solu-medrol for disc bulge and Ketoralac as antiinflammatory. Will taper steroids - Lidoderm patch to lumber spine - Flexeril 10mg TID - Started on Gabapentin 300mg QHS for sciatica which appears to be helping. titrate as needed 2. Constipation - Miralax and Senna S BID - Will give Fleet Enema 3. H/o leukemia - she was treated 12 years ago and in remission but always concerns of reoccurrence in spine 4. Morbid obesity - Patient aware she needs to lose weight and appreciate assistance from incinerator operator 5. Left meniscus injury - Scheduled for Friday - Needs CXR for preop- ordered for am 6. Disposition - with PT arranged - FWW delivered to room Subjective 24 Hr Interval Summary Free Text/Dictation Patient states her pain is improving but still requiring IV pain medications for relief. She is experiencing more bilateral hip pain with radiation to the groin. The gabapentin is helping with relief of her sciatica. Denies any loss of bladder or bowel, nausea, vomiting, falls, chest pain, or shortness of breath. Is c/o constipation. Exam/Review of Systems Vital Signs Vitals Vital Signs Date Time Temp Pulse Resp B/P Pulse Ox O2 Delivery O2 Flow Rate FiO2 06/08/17 15:50 98.3 66 18 135/74 96 06/05/17 07:00 Room Air Intake and Output 06/07/17 06/07/17 06/08/17 15:00 23:00 07:00 Intake Total 2320 ml 960 ml Balance 2320 ml 960 ml Exam General: Less distress with movement HEENT: NC/AT, PERRL, EOM intact Neck: Supple with full range of motion. No rigidity or meningismus Lungs: Clear to auscultation bilaterally no crackles rales or wheezing Heart: Normal S1-S2, Regular rhythm and rate. No murmur Abdomen: Soft , nontender, nondistended , No guarding no rebound tenderness , Musculoskeletal: Tenderness to palpation along the lower lumbar spine, tenderness of bilateral paravertebral muscles at the level of the lumbar spine. Extremities: moving all extremities, no edema, cyanosis, or clubbing Neurologic: Normal mental status, speech normal, cranial nerves II through XII are intact, motor and sensory are intact Results Result Diagram: 06/08/17 0549 06/08/17 0549 Results 24 hrs Laboratory Tests Test 06/08/17 05:49 White Blood Count 7.3 Red Blood Count 3.97 L Hemoglobin 11.9 L Hematocrit 36.5 L Mean Corpuscular Volume 91.9 Mean Corpuscular Hemoglobin 30.0 Mean Corpuscular Hemoglobin Concent 32.6 Red Cell Distribution Width 13.2 Platelet Count 172 Mean Platelet Volume 10.6 H Neutrophils % 60.4 Lymphocytes % 31.2 Monocytes % 7.6 Eosinophils % 0.1 Basophils % 0.0 Nucleated Red Blood Cells % 0.0 Neutrophils # (Manual) 4.4 Lymphocytes # 2.3 Monocytes # 0.6 Eosinophils # 0.0 Basophils # 0.0 Nucleated Red Blood Cells # 0.0 Sodium Level 139 Potassium Level 4.7 Chloride Level 105 Carbon Dioxide Level 30 Anion Gap 9 Blood Urea Nitrogen 29 H Creatinine 1.00 Glucose Level 109 Calcium Level 8.9 Phosphorus Level 5.0 H Magnesium Level 2.1 Albumin 3.3 Free Thyroxine 1.08 Free Triiodothyronine (T3) pg/mL 2.81 Medications Medications Current Medications Ondansetron HCl (Zofran Inj) 4 mg Q6H PRN IV NAUSEA AND/OR VOMITING Last administered on 06/08/17 11:45; Admin Dose 4 MG; Start 06/04/17 at 22:00 Docusate Sodium (Colace) 100 mg Q12H PO Last administered on 06/08/17 11:32; Admin Dose 100 MG; Start 06/04/17 at 22:00 Bisacodyl (Dulcolax) 5 mg DAILY PO Last administered on 06/08/17 08:20; Admin Dose 5 MG; Start 06/05/17 at 09:00 Famotidine (Pepcid) 20 mg Q12 PO Last administered on 06/08/17 08:20; Admin Dose 20 MG; Start 06/05/17 at 09:00 Oxycodone/ Acetaminophen (Endocet (10/ 325)) 1 tab Q6H PRN PO PAIN LEVEL 4-6 Last administered on 06/08/17 12:26; Admin Dose 1 TAB; Start 06/04/17 at 22:00 Enoxaparin Sodium (Lovenox) 40 mg DAILY SC Last administered on 06/08/17 08:19 ; Admin Dose 40 MG; Start 06/05/17 at 09:00 Hydromorphone HCl (Dilaudid) 1 mg Q3H PRN IV SEVERE PAIN LEVEL 7-10 Last administered on 06/08/17 08:17; Admin Dose 1 MG; Start 06/05/17 at 00:40 Acetaminophen (Tylenol Tab) 650 mg Q6H PRN PO PAIN AND OR ELEVATED TEMP; Start 06/05/17 at 02:30 Capsaicin (Theragen) 1 applic TID PRN TOP knee pain Last administered on 03:04; Admin Dose 1 APPLIC; Start 06/05/17 at 17:00 Diphenhydramine HCl (Benadryl) 25 mg Q4H PRN IV ITCHING Last administered on 15:14; Admin Dose 25 MG; Start 06/06/17 at 14:30 Methylprednisolone Sodium Succinate (Solu-Medrol) 60 mg DAILY IV Last administered on 06/08/17 08:20; Admin Dose 60 MG; Start 06/06/17 at 15:30 Nystatin (Nystatin Oint) 1 applic BID TOP Last administered on 06/08/17 08:20 ; Admin Dose 1 APPLIC; Start 06/06/17 at 15:30 Ketorolac Tromethamine (Toradol) 30 mg Q6H IV Last administered on 06/08/17 17 :44; Admin Dose 30 MG; Start 06/06/17 at 18:00; Stop 06/09/17 at 18:00 Bisacodyl (Dulcolax Supp) 10 mg DAILY PRN [place] CONSTIPATION Last administered on 06/07/17 03:20; Admin Dose 10 MG; Start 06/07/17 at 01:00 Polyethylene Glycol (Miralax) 17 gm DAILY PRN PO CONSTIPATION Last administered on 06/07/17 05:08; Admin Dose 17 GM; Start 06/07/17 at 01:00 Miscellaneous Information Patients own medicat... BID@16 XX ; Start 06/07/17 at 10:00 Cyclobenzaprine HCl (Flexeril) 10 mg Q8H PO Last administered on 06/08/17 13: 38; Admin Dose 10 MG; Start 06/07/17 at 22:00 Gabapentin (Neurontin) 300 mg QHS PO Last administered on 06/07/17 20:43; Admin Dose 300 MG; Start 06/07/17 at 21:00 Senna/Docusate Sodium (Senokot-S) 1 tab BID PO Last administered on 06/08/17 08:20; Admin Dose 1 TAB; Start 06/07/17 at 15:00 Lidocaine (Lidoderm) 1 patch DAILY TD Last administered on 06/08/17 08:19; Admin Dose 1 PATCH; Start 06/07/17 at 15:00 RUBÉN HAMILTON MD Jun 08, 2017 18:17
[2017-06-08] MEDS ORDERED: NA PHOSPHATE/BIPHOS 133 ML ENEMA PR PRN (18:30)
[2017-06-08] MEDS: POLYETHYLENE GLYCOL 17 GM PACKET PO PRN (19:00)
[2017-06-08 20:00] VITALS: BP 129/65; RESP 19
[2017-06-08] MEDS: GABAPENTIN 300 MG CAP PO SCH (21:10)
[2017-06-09] MEDS: KETOROLAC 30 MG INJ IV SCH ×4 (00:26→17:18)
[2017-06-09] MEDS: DIPHENHYDRAMINE 50 MG INJ IV PRN (00:29)
[2017-06-09] MEDS: HYDROmorphONE 1 MG/ML SYG IV PRN ×5 (01:52→15:29)
[2017-06-09 02:00] VITALS: BP 139/82; RESP 19
[2017-06-09 05:46] LABS: BASOPHILS % 0.1 % (0.0-2.0); EOSINOPHILS % 0.3 % (0.0-7.0); HEMATOCRIT 37.2 % (37.0-47.0); HEMOGLOBIN 11.7 g/dl (12.0-16.0); LYMPHOCYTES # 2.3 10^3/ul (0.8-2.9); LYMPHOCYTES % 29.6 % (15.0-51.0); MEAN CORPUSCULAR HGB CONC 31.5 g/dl (32.0-37.0); MEAN CORPUSCULAR VOLUME 92.1 fl (82.0-101.0); MEAN PLATELET VOLUME 10.8 fl (7.4-10.4); MONOCYTE # 0.7 10^3/ul (0.3-0.9); MONOCYTES % 8.4 % (0.0-11.0); NEUTROPHILS % 60.7 % (39.0-77.0); PLATELET COUNT 164 10^3/UL (140-415); RED BLOOD COUNT 4.04 10^6/ul (4.20-5.40); RED CELL DISTRIBUTION WIDTH 13.8 % (11.5-14.5); WHITE BLOOD COUNT 7.7 10^3/ul (4.8-10.8)
[2017-06-09 06:09] LABS: ALBUMIN 3.6 g/dl (3.3-4.9); CALCIUM 8.8 mg/dl (8.4-10.2); CREATININE 1.13 mg/dl (0.44-1.00); PHOSPHORUS 4.9 mg/dl (2.5-4.9); POTASSIUM 4.3 mmol/L (3.5-5.1)
[2017-06-09] MEDS: CYCLOBENZAPRINE 10 MG TAB PO SCH ×2 (06:21→14:11)
[2017-06-09 07:52] VITALS: BP 138/63; RESP 16
[2017-06-09] MEDS: SENNA/DOCUSATE NA (8.6MG/50MG) TAB PO SCH (08:17)
[2017-06-09] MEDS: BISACODYL (EC) 5 MG TAB PO SCH (08:17)
[2017-06-09] MEDS: NYSTATIN 15 GM OINT TOP SCH (08:17)
[2017-06-09] MEDS: FAMOTIDINE 20 MG TAB PO SCH (08:17)
[2017-06-09] MEDS: LIDOCAINE 5% PATCH TD SCH (08:21)
[2017-06-09] MEDS: ONDANSETRON 4 MG INJ IV PRN (08:21)
[2017-06-09] MEDS: ENOXAPARIN 40 MG/0.4 ML SYG SC SCH (08:34)
[2017-06-09] MEDS ORDERED: METHYLPREDNISOLONE 40 MG INJ IV SCH (09:00)
[2017-06-09] MEDS: DOCUSATE SODIUM 100 MG CAP PO SCH (10:00)
--- NOTE | 2017-06-09 12:29 | RADRPT ---
PROCEDURE: XR Chest. CLINICAL INDICATION: Back pain TECHNIQUE: PA and lateral views of the chest COMPARISON: No prior Chest x-ray FINDINGS: The cardiomediastinal silhouette is within normal limits of size. The lungs are clear without pleur al effusion or focal consolidation. No pneumothorax. The osseous structures and soft tissues are unr emarkable. IMPRESSION: 1. No evidence for active cardiopulmonary disease. RPTAT:AAJJ Mariel Mendoza Physician Date Time Electronically viewed and signed by Mariel Mendoza Physician on 06/09/2017 12:29 MONY/
[2017-06-09 14:25] VITALS: BP 109/63; RESP 16
--- NOTE | 2017-06-09 15:53 | DS ---
Date/Time of Note Date/Time of Note DATE: 06/09/17 TIME: 15:46 Discharge Summary Admission/Discharge Info Admit Date/Time Jun 04, 2017 at 07:30 Discharge Date/Time Discharge Diagnosis 1. Chronic back pain, degenerative disc disease, s/p spinal surgery, continue norco prn and follow up with ortho 2. Left meniscus injury, follow up with ortho for surgery thi9s week 3. H/o leukemia 4. Morbid obesity Patient Condition: Stable Hx of Present Illness This is a 61-year-old female who was transferred from [facility] for intractable lower back pain radiating down to bilateral lower legs. Patient states that she was unable to walk secondary to her pain. Her pain is 10 out of 10 and worse with movement. She states that she has had previously pain radiating down her right leg, however at this time patient states that she has pain in a bandlike sensation along her lower back with pain radiating down her legs posteriorly as well as anteriorly on her pelvis. She denies any urinary incontinence or saddle anesthesia. Patient states that she has had previous history of back surgeries. 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 She has a previous history of leukemia. She also has been diagnosed with sciatic nerve pain for this feels worse than the pain at this time. She is going to be undergoing the meniscal surgery for her right meniscus in 1 week and she was supposed to go today to have clearance for the surgery however she was unable to walk she taken to the ED via ambulance. She also states she had an MRI of her lumbar spine but she does not know what the results are which occurred approximately 2 weeks ago. And today and her dysfunction are a lot worse and there were 2 weeks ago. She did receive Decadron 10mg, morphine 8mg, and Dilaudid 1 mg for pain control prior to being transferred to [facility]. Hospital Course Patient has a previous history of spinal surgery history of leukemia which does raise concern for weakness of her spinal bones as well as possible concern for metastasis. MRI spine shows Lumbar discectomy with interbody fusion and intact by pedicular vertebral body screws and fusion rods at L4-L5. Grade 1 anterolisthesis of L4-L5 with intact interbody bone graft. Severe central canal stenosis with mild bilateral foraminal stenosis. Intact bipedicular vertebral body screws and fusion rods with decompression laminectomy at L5-S1. Severe hypertrophic facet joint arthropathy and severe bilateral foraminal stenosis without central canal stenosis. Degenerative disc bulging with the broad-based central to left subarticular disc osteophyte complex and 7 mm right foraminal disc osteophyte complex resulting in severe left subarticular recess and foraminal stenosis and moderate right subarticular and severe right foraminal stenosis as described in detail above. Minimal broad-based right subarticular protrusion at L2-L3 with bilateral subarticular recess stenosis resulting in mild to moderate bilateral foraminal stenosis without central canal stenosis. Back pain is better and she walks with walker. I will discharge her on norco prn and a walker and have her follow up with her orthopedics outpatient. Patient has right meniscus injury: Patient has meniscal surgery scheduled for Friday. Home Meds Active Scripts Front Wheel Walker* (Front Wheel Walker*) 1 Each Dme, 1 EACH [facility] DIRECTED, #1 DME 0 Refills Prov:RUBÉN HAMILTON MD 06/08/17 Reported Medications Cyclobenzaprine Hcl* (Cyclobenzaprine Hcl*) 10 Mg Tablet, 10 MG PO Q8 Y for MUSCLE SPASMS, #60 TAB 06/04/17 Hydrocodone Bit-Acetaminophen* ([place]*) 5-325 Mg Tab, 1 TAB PO Q4H Y for PAIN, TAB 08/03/14 Follow-up Plan PCP and ortho in one week Primary Care Provider Enrico More Pending Labs Laboratory Tests Test 06/09/17 04:35 White Blood Count 7.710^3/ul (4.8-10.8) Red Blood Count 4.0410^6/ul (4.20-5.40) Hemoglobin 11.7g/dl (12.0-16.0) Hematocrit 37.2% (37.0-47.0) Mean Corpuscular Volume 92.1fl (82.0-101.0) Mean Corpuscular Hemoglobin 29.0pg (29.0-33.0) Mean Corpuscular Hemoglobin Concent 31.5g/dl (32.0-37.0) Red Cell Distribution Width 13.8% (11.5-14.5) Platelet Count 32908^3/UL (140-415) Mean Platelet Volume 10.8fl (7.4-10.4) Neutrophils % 60.7% (39.0-77.0) Lymphocytes % 29.6% (15.0-51.0) Monocytes % 8.4% (0.0-11.0) Eosinophils % 0.3% (0.0-7.0) Basophils % 0.1% (0.0-2.0) Nucleated Red Blood Cells % 0.0/100WBC (0.0-0.0) Neutrophils # (Manual) 4.710^3/ul (1.7-7.5) Lymphocytes # 2.310^3/ul (0.8-2.9) Monocytes # 0.710^3/ul (0.3-0.9) Eosinophils # 0.010^3/ul (0.0-0.5) Basophils # 0.010^3/ul (0.0-0.1) Nucleated Red Blood Cells # 0.010^3/ul (0.0-0.0) Sodium Level 141mmol/L (135-144) Potassium Level 4.3mmol/L (3.5-5.1) Chloride Level 106mmol/L (97-110) Carbon Dioxide Level 28mmol/L (21-31) Anion Gap 11 (8-16) Blood Urea Nitrogen 37mg/dl (7-20) Creatinine 1.13mg/dl (0.44-1.00) Glucose Level 132mg/dl (70-220) Calcium Level 8.8mg/dl (8.4-10.2) Phosphorus Level 4.9mg/dl (2.5-4.9) Magnesium Level 2.0mg/dl (1.7-2.5) Albumin 3.6g/dl (3.3-4.9) MIGUELINA FENG MD Jun 09, 2017 15:53
== END 2017-06-09 17:47 | disposition home or self-care (01) ==
LOC: INTOOBSV 07:30 → PP2 07:30
PROVIDERS: ADMIT Family Medicine; ATTEND Family Medicine
DX: G89.29 Other chronic pain (principal); M54.40 Lumbago with sciatica, unspecified side; M51.36 Other intervertebral disc degeneration, lumbar region; E66.01 Morbid (severe) obesity due to excess calories; Z68.42 Body mass index [BMI] 45.0-49.9, adult; L29.9 Pruritus, unspecified; K59.00 Constipation, unspecified; Z85.6 Personal history of leukemia; Z82.49 Family history of ischemic heart disease and other diseases of the circulatory system
CPT/HCPCS: 71020; 72158; 80053; 80061; 80069; 83036; 83735; 84439; 84443; 84481; 85025; 85610; 85730; 87081; 93005; 97116; 97162; 97167; 97530; J1170; J1200; J1650; J1885; J2405; J2920; J2930; Z7500; Z7610; G0378

== ENCOUNTER 2017-06-11 09:33 | Day surgery (SDC) | payer OTHER ==
[2017-06-10 10:25] VITALS: BMI 39.0
--- NOTE | 2017-06-10 19:31 | PREOPHP ---
DATE OF ADMISSION: 06/18/2017 REASON FOR ADMISSION: This 61-year-old patient is going to be admitted for diagnostic arthroscopy of left knee, partial medial and lateral meniscectomy, possible repair, application of Agarwal dressing. This patient has been experiencing knee pain for quite awhile. Conservative treatment resulted in limited benefit to the patient, and patient has requested surgical intervention. PAST MEDICAL HISTORY: Leukemia, in remission. SOCIAL HISTORY: No smoking. No drinking. PREVIOUS SURGERY: Two spine surgeries, 1 polyp removal. ALLERGIES: HISTORY OF ALLERGY TO SULFA. REVIEW OF SYSTEMS: Metal implant in the lower back. PHYSICAL EXAMINATION: SKIN: Within normal limits. ENT: Pallor. Head normocephalic. Trachea midline. Bilateral . No mass. No bruit. No lymphadenopathy. CARDIOVASCULAR: Normal sinus rhythm. S1, S2 normal. No murmur. No JVD. No peripheral edema. LUNGS: Clear. ABDOMEN: No organomegaly. No mass. Bowel sounds present. GENITOURINARY: Not done pertinent to this admission. RECTAL: Not done pertinent to this admission. VITAL SIGNS: Height of 5 feet 3 inches. HEAD AND NECK: Unremarkable. EXTREMITIES: Upper extremities normal, with normal neurovascular examination. Spine clear. Both lower extremities were quite normal, except for right knee. There is no muscle atrophy. Range of motion: Fair degree of recurvatum to 130 degrees. There is no instability. Negative anterior drawer. There is tenderness over the patellar tendon, tenderness over the anterior medial and posterior medial tibial femoral joint line. NEUROLOGIC: Examination seems to be intact. IMAGING: MRI of the knee indicates a torn meniscus. DIAGNOSES: 1. Torn medial meniscus. 2. plica syndrome. TREATMENT AND PLAN: Alternatives, risks and benefits discussed. Patient understands possible complications from surgery, such as infection, bleeding, nerve damage, vascular damage, possibility of deep venous thrombosis, pulmonary embolism, hypersensitivity from medication, even . Patient understands ideal result may not be obtained, depending on actual finding or unknown factor/factors. Formal H and P PCP. Dictated By: Alcon Jackman MD /gaurav/abner /Document#: [id number]
[2017-06-11] VITALS (11 sets, daily range): BP systolic 96–127; BP diastolic 52–81; PULSE 74–92; RESP 14–16; Ht 160 cm; Wt 100.8 kg
[~2017-06-11] VITALS: Ht 160 cm; Wt 100.8 kg
[~2017-06-11 09:33] MED LIST changes: +CYCL-319 PO; +WALK1EAC23 MC
[2017-06-11] MEDS ORDERED: MIDAZOLAM 1 MG/ML 2 ML INJ ONE (09:50)
[2017-06-11] MEDS ORDERED: LIDOCAINE 2% (SDV) 5 ML INJ ONE (09:50)
[2017-06-11] MEDS ORDERED: PROPOFOL 20 ML ONE (09:50)
[2017-06-11] MEDS ORDERED: FENTAnyl 50 MCG/ML VIAL ONE ×2 (09:50→12:00)
[2017-06-11] MEDS ORDERED: ONDANSETRON 4 MG INJ IV PRN (10:00)
[2017-06-11] MEDS ORDERED: FENTAnyl 50 MCG/ML VIAL IV PRN (10:00)
[2017-06-11] MEDS ORDERED: PROCHLORPERAZINE 10 MG INJ IV PRN (10:00)
[2017-06-11] MEDS ORDERED: DIPHENHYDRAMINE 50 MG INJ IV PRN (10:00)
[2017-06-11] MEDS ORDERED: HYDROmorphONE (0.2 MG/ML) 10ML SYG IV PRN (10:00)
[2017-06-11] MEDS ORDERED: OXYCODONE/ACETAMINOPHEN (5/325) TAB PO PRN ×2 (10:00)
[2017-06-11] MEDS ORDERED: MEPERIDINE 25 MG INJ IV PRN (10:00)
[2017-06-11] MEDS ORDERED: EPINEPHrine 1 MG/ML 30 ML INJ ONE (10:57)
[2017-06-11] MEDS ORDERED: morphine SULFATE/PF (10 MG/10 ML) INJ ONE (10:57)
[2017-06-11] MEDS ORDERED: ONDANSETRON 4 MG INJ ONE (11:39)
[2017-06-11] MEDS ORDERED: CEFAZOLIN 1 GM INJ ONE (11:39)
[2017-06-11] MEDS ORDERED: METOCLOPRAMIDE 10 MG INJ ONE (11:39)
[2017-06-11] MEDS ORDERED: PHENYLephrine (100 MCG/ML) 5ML SYG ONE (11:42)
[2017-06-11] MEDS ORDERED: EPHEDrine SULFATE 50 MG/5 ML SYG ONE (11:43)
--- NOTE | 2017-06-11 12:35 | SIPON ---
Date/Time of Note Date/Time of Note DATE: 06/11/17 TIME: 12:32 Operative Report Preoperative Diagnosis Torn medial and lateral menjscus left knee Postoperative Diagnosis The same Operation/Procedure Performed Daignostic scop and partial medial and lateral menisectom and calvo dressing Anesthesia Type: general Estimated Blood Loss: minimal Transfusion Required: no Specimen: none Grafts/Implants: none Complications: no ROS SANTOS MD Jun 11, 2017 12:35
[2017-06-11] MEDS: HYDROmorphONE (0.2 MG/ML) 10ML SYG IV PRN ×5 (12:41→13:13)
[2017-06-11] MEDS ORDERED: HYDROCODONE/APAP (5/325) TAB PO PRN ×2 (13:00)
--- NOTE | 2017-06-13 12:15 | OPR ---
DATE OF OPERATION: 06/11/2017 PREOPERATIVE DIAGNOSIS: Left knee torn medial meniscus, torn lateral meniscus. POSTOPERATIVE DIAGNOSIS: Left knee torn medial meniscus, torn lateral meniscus, limited synovitis and some plica band in the suprapatellar pouch. OPERATION PERFORMED: Diagnostic arthroscopy, partial medial menisectomy, and partial lateral menisectomy, synovectomy and scar tissue/plica band release. OPERATIVE FINDINGS AT SURGERY: Torn medial meniscus, torn lateral meniscus, and limited synovitis in the anterior part of the medial compartment. 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 ANESTHESIA: General. ESTIMATED BLOOD LOSS: None. COMPLICATIONS: None. OPERATIVE PROCEDURE: Patient was transferred to the operating room and placed onto the table in supine position and general anesthesia was induced. Two grams of Ancef was given IV. Left knee was shaved, prepped and draped in routine fashion. Landmarks were marked. First, 2 regulatory anterior portals, parapatellar tendon were established. Examination of suprapatellar pouch indicated scarified band, the remnant of plica band in the medial lateral gutter which was released. It was not typical of plica band. Patella indicated essentially grade 2 and grade 3 chondromalacia on the patellar side and also to some extent on the trochlear side. Medial and lateral gutters were cleared of loose bodies. Going to medial compartment, there was grade 3 mostly, occasionally grade 4, chondromalacia on the tibial surface and lateral debris. There was a flap tear of the posterior horn of the medial meniscus, therefore, partial medial menisectomy to stable margins was done. There was chronic synovitis anterior medial compartment which was taken care of by shrinkage by arhrocare. ACL was intact. The lateral compartment in the case is 2 flap tears here on the posterior third and one in the middle third which was taken care of by [employer] Bovie by abrasion to stable margins. There was a small flap tear of the anterior and lateral meniscus which was again taken care of by [employer] Bovie by coagulation and shrinkage. Knee was evacuated from debris with copious amount of saline irrigation. Portal was closed with Mastisol and Steri-Strips. Duramorph 10 mg mixed with 10 mL of injectable saline was injected into the knee. Sterile Agarwal dressing was applied. Procedure was terminated. General anesthesia was stopped. Patient was taken to recovery room in stable condition. Dictated By: Alcon Jackman MD /gaurav/ton /Document#: [id number] MIGUEL
== END 2017-06-11 14:57 | disposition home or self-care (01) ==
LOC: SDS 09:33
PROVIDERS: ATTEND Internal Medicine Endocrinology, Diabetes & Metabolism
DX: M23.204 Derangement of unspecified medial meniscus due to old tear or injury, left knee (principal); M23.201 Derangement of unspecified lateral meniscus due to old tear or injury, left knee; M65.862 Other synovitis and tenosynovitis, left lower leg; M94.262 Chondromalacia, left knee
CPT/HCPCS: 29880; C1713; J0171; J0690; J1170; J2175; J2250; J2274; J2370; J2405; J2765; J3010; Z7512; Z7610

== ENCOUNTER 2019-03-15 16:35 | Emergency (ER) | payer OTHER ==
[~2019-03-15] VITALS: Ht 160 cm; Wt 106.4 kg
[~2019-03-15 16:35] MED LIST changes: -CYCL-319 PO; +CYCL10TA7 PO; -HYDR-3498 PO; -WALK1EAC23 MC
[2019-03-15 16:55] VITALS: Ht 160 cm; Wt 106.4 kg
[2019-03-15] MEDS ORDERED: morphine 4 MG/ML VIAL IV STA (19:01)
[2019-03-15] MEDS ORDERED: METHYLPREDNISOLONE 125 MG INJ IV STA (19:01)
[2019-03-15] MEDS ORDERED: ONDANSETRON 4 MG INJ IV STA (19:01)
--- NOTE | 2019-03-15 19:11 | ERD ---
ER Documentation Chief Complaint Chief Complaint RIGHT SIDE BUTTOCKS PAIN RADIATING DOWN LEG [id number] HPI 63-year-old female with history of sciatica presents with complaint of pain in the right buttocks leading down to her right leg for the past 2 weeks. States that she normally takes meloxicam and cyclobenzaprine which resolved the pain but this time is not help. She says that one time she went to the ER and they gave her IV steroids and it helped and she is requesting to have this treatment again. In addition she also wants medication for pain. States that she is been seeing a physical therapist as well as an orthopedist for her sciatica. Patient is ambulatory. Denies chest pain, SOB, flank pain, dsyuria, hematuria, saddle numbness, incontinence, pain worse at night or when supine, weight loss, night sweats, fatigue, focal neurological defecits, recent bacterial infection, IV drug use, or immunosuppression. ROS All systems reviewed and are negative except as per history of present illness. Medications Home Meds Active Scripts Cyclobenzaprine Hcl* (Cyclobenzaprine Hcl*) 10 Mg Tablet, 10 MG PO TID, #30 TAB Prov:RAMESHSHARLENENICOLAJAQUELIN 03/15/19 Meloxicam* (Meloxicam*) 7.5 Mg/5 Ml Oral.susp, 15 MG PO DAILY, #30 ML Prov:RAMESHNALDOJAQUELIN 03/15/19 Reported Medications Cyclobenzaprine Hcl* (Cyclobenzaprine Hcl*) 10 Mg Tablet, 10 MG PO Q8 PRN for MUSCLE SPASMS, #60 TAB 06/04/17 Allergies Allergies: Coded Allergies: Sulfa (Sulfonamide Antibiotics) (Verified Allergy, Unknown, CHILLS/FEVER, 06/11/17) FLU LIKE SYMPTOMS PMhx/Soc History of Surgery: Yes (right knee, spine surgery x 2, vocal cord x 2. ) Anesthesia Reaction: No Hx Neurological Disorder: No Hx Respiratory Disorders: No Hx Cardiac Disorders: No Hx Psychiatric Problems: No Hx Miscellaneous Medical Probl: No Hx Alcohol Use: No Hx Substance Use: No Hx Tobacco Use: No Smoking Status: Never smoker FmHx Family History: No diabetes, No coronary disease, No other Physical Exam Vitals Vital Signs Date Temp Pulse Resp B/P (MAP) Pulse Ox O2 O2 Flow FiO2 Time Delivery Rate 03/15/19 98.9 85 18 139/65 97 16:55 (89) Physical Exam Const: No acute distress Head: Atraumatic Eyes: Normal Conjunctiva ENT: Normal External Ears, Nose and Mouth. Neck: Full range of motion. No meningismus. Resp: Clear to auscultation bilaterally Cardio: Regular rate and rhythm, no murmurs Abd: Soft, non tender, non distended. Normal bowel sounds Skin: No petechiae or rashes Back: No midline or flank tenderness. Limited flexion. No bony deformities or step-offs noted. No erythema or edema noted. Ext: No cyanosis, or edema. No saddle numbness. Distal pulses sensation intact. Positive straight leg raise on right leg. Neur: Awake and alert Psych: Normal Mood and Affect Results 24 hrs Current Medications Medications Dose Sig/Veronica Start Time Status Last (Trade) Ordered Route PRN Stop Time Admin Dose Reason Admin 125 mg ONCE STAT 03/15/19 DC 03/15/19 Methylprednis IV 19:01 19:30 olone Sodium 03/15/19 19:04 Succinate (Solu-Medrol) Morphine 4 mg ONCE STAT 03/15/19 DC 03/15/19 Sulfate IV 19:01 19:30 (morphine) 03/15/19 19:04 Ondansetron 4 mg ONCE STAT 03/15/19 DC 03/15/19 HCl (Zofran IV 19:01 19:30 Inj) 03/15/19 19:04 Procedures/MDM MDM: Patient's presentation is consistent with acute sciatica. Patient stated that when she had an acute episode like this previously IV steroids with only thing that helped and she requested to have this treatment again which I think is appropriate. Patient was given IV methylprednisolone as well as morphine in the ER and discharged with meloxicam and cyclobenzaprine as she was taking both these medications outpatient and she said that they were normally effective. I have low suspicion for epidural abscess, cauda equina, abdominal aortic aneurysm, pyelonephritis, aortic dissection, spinal fracture, or other emergent conditions based on patient history and exam findings. Patient told if they experience leg weakness or numbness, or incontinence they need to return to the ER immediately. At this time, patient is stable for discharge and outpatient management. I have instructed the patient to follow-up with his/her primary care physician in 1-2 days. I have discussed with the patient the possibility of needing to see a specialist for further workup and imaging studies if symptoms p ersist. I have instructed the patient to promptly return to the ER for any new or worsening symptoms including but not limited to increased pain, fever, nausea, vomiting, weakness or LOC. The patient and/or family expressed understanding of and agreement with this plan. All questions were answered. Home care instructions were provided. DISCLAIMER: Inadvertent spelling and grammatical errors are likely due to EHR/dictation software use and do not reflect on the overall quality of patient care. Also, please note that the electronic time recorded on this note does not necessarily reflect the actual time of the patient encounter. Departure Diagnosis: Primary Impression: Sciatica Condition: Stable JAQUELIN FUENTES Mar 15, 2019 19:10
[2019-03-15] MEDS ORDERED: MELO7.5O PO (20:13)
[2019-03-15] MEDS ORDERED: CYCL10TA7 PO (20:13)
[2019-03-15 20:34] VITALS: BP 132/65; PULSE 66; RESP 16
== END 2019-03-15 20:39 | disposition home or self-care (01) ==
LOC: FTE 16:35
DX: M54.30 Sciatica, unspecified side (principal)
CPT/HCPCS: 96374; 96375; J2270; J2405; J2930; Z7502

== ENCOUNTER 2019-07-28 05:52 | Inpatient (IN) | payer OTHER ==
[2019-07-28] VITALS (23 sets, daily range): BP systolic 97–145; BP diastolic 52–78; PULSE 62–78; RESP 16–20; Ht 160 cm; Wt 96.9 kg
[~2019-07-28] VITALS: Ht 160 cm; Wt 96.9 kg
[~2019-07-28 05:52] MED LIST changes: +GABA300C16 ORAL; +HYDR-3601 ORAL; +MELO7.5O PO
[2019-07-28] MEDS ORDERED: THROMBIN 5000 UNIT (RECOTHROM) VIAL ONE ×2 (06:51→08:17)
[2019-07-28] MEDS ORDERED: BUPIVACAINE 0.25% (MPF) 30 ML INJ ONE (06:52)
[2019-07-28] MEDS ORDERED: BUPIVACAINE 0.5%/EPI (SDV) 30 ML INJ ONE (06:52)
[2019-07-28] MEDS ORDERED: POLYMYXIN/BACITRACIN 1L IRRIG ONE (06:53)
[2019-07-28] MEDS ORDERED: HEPARIN 1000 UNITS/ML 10 ML INJ ONE (06:53)
[2019-07-28] MEDS ORDERED: FENTAnyl 50 MCG/ML VIAL ONE ×3 (06:53→09:55)
[2019-07-28] MEDS ORDERED: CA CHLORIDE 10% 10 ML SYRINGE ONE (06:53)
[2019-07-28] MEDS ORDERED: CEFAZOLIN SODIUM 2GM/D5W 50 X1 IVPB ONE (07:00)
[2019-07-28] MEDS: LACTATED RINGER'S 1,000 ML IV SCH (07:15)
[2019-07-28] MEDS ORDERED: DESFLURANE 15 MIN ONE (07:44)
[2019-07-28] MEDS ORDERED: CEPASTAT LOZENGE MT PRN (09:00)
[2019-07-28] MEDS ORDERED: ACETAMINOPHEN 325 MG TAB PO PRN (09:00)
[2019-07-28] MEDS ORDERED: HYDROCODONE/APAP (5/325) TAB PO PRN (09:00)
[2019-07-28] MEDS ORDERED: AL HYDROX/MG HYDROX/SIMETH 30 ML CUP PO PRN (09:00)
[2019-07-28] MEDS ORDERED: PROCHLORPERAZINE 10 MG TAB PO PRN (09:00)
[2019-07-28] MEDS ORDERED: ONDANSETRON 4 MG INJ IV PRN ×2 (09:00→10:00)
[2019-07-28] MEDS ORDERED: NALOXONE (0.4 MG/ML) INJ IV PRN (09:00)
[2019-07-28] MEDS ORDERED: ROCURONIUM 50 MG INJ ONE (09:05)
[2019-07-28] MEDS ORDERED: PROPOFOL 20 ML ONE (09:05)
[2019-07-28] MEDS ORDERED: LIDOCAINE 100 MG SYRINGE ONE (09:05)
[2019-07-28] MEDS ORDERED: SUCCINYLCHOLINE CHLORIDE 100 MG/5 ML SYG IV ONE (09:05)
[2019-07-28] MEDS ORDERED: SUGAMMADEX SODIUM 200 MG/2 ML VIAL IV ONE (09:06)
[2019-07-28] MEDS ORDERED: HYDROmorphONE 1 MG/5 ML IV SYRINGE IV ONE (09:54)
[2019-07-28] MEDS ORDERED: HYDROmorphONE 1 MG/5 ML IV SYRINGE IV PRN ×2 (10:00)
[2019-07-28] MEDS ORDERED: MEPERIDINE 25 MG INJ IV PRN (10:00)
[2019-07-28] MEDS ORDERED: ALBUTEROL 0.083% (NEB) 2.5 MG/3 ML AMP HHN PRN (10:00)
[2019-07-28] MEDS ORDERED: METOCLOPRAMIDE 10 MG INJ IV PRN (10:00)
[2019-07-28] MEDS ORDERED: FENTAnyl 50 MCG/ML VIAL IV PRN ×2 (10:00)
[2019-07-28] MEDS ORDERED: DIPHENHYDRAMINE 50 MG INJ IV PRN (10:00)
[2019-07-28] MEDS: DIPHENHYDRAMINE 50 MG INJ IV PRN (10:54)
[2019-07-28] MEDS ORDERED: CYCLOBENZAPRINE 10 MG TAB PO PRN (13:00)
[2019-07-28] MEDS: CEFAZOLIN 1 GM/50 ML (PMX) 50 ML IVPB SCH ×2 (13:58→22:26)
[2019-07-28] MEDS: 1/2 NS + KCL 20 MEQ 1,000 ML IV SCH ×2 (13:59→23:58)
[2019-07-28] MEDS: HYDROCODONE/APAP (5/325) TAB PO PRN ×2 (13:59→19:12)
[2019-07-28] MEDS: DOCUSATE SODIUM 100 MG CAP PO SCH (22:27)
[2019-07-28] MEDS: GABAPENTIN 300 MG CAP PO SCH (22:27)
[2019-07-28] MEDS: HYDROmorphONE 0.5 MG/0.5 ML SYG IV PRN (23:43)
[2019-07-29] MEDS: DIPHENHYDRAMINE 25 MG CAP PO PRN ×2 (01:33→20:53)
[2019-07-29 02:00] VITALS: BP 100/52; PULSE 70; RESP 20
[2019-07-29] MEDS: CEFAZOLIN 1 GM/50 ML (PMX) 50 ML IVPB SCH (06:10)
[2019-07-29] MEDS: HYDROCODONE/APAP (5/325) TAB PO PRN ×3 (06:11→18:31)
[2019-07-29] MEDS: PANTOPRAZOLE (EC) 40 MG TAB PO SCH (06:11)
[2019-07-29] MEDS: LACTATED RINGER'S 1,000 ML IV SCH (07:00)
[2019-07-29] MEDS: HYDROmorphONE 0.5 MG/0.5 ML SYG IV PRN ×3 (07:53→21:52)
[2019-07-29 07:56] VITALS: BP 99/52; PULSE 78; RESP 18
[2019-07-29] MEDS: DOCUSATE SODIUM 100 MG CAP PO SCH ×2 (08:51→21:52)
[2019-07-29 16:20] VITALS: BP 105/51; PULSE 66; RESP 18
[2019-07-29 19:40] VITALS: BP 113/55; PULSE 77; RESP 18
[2019-07-29] MEDS: POLYETHYLENE GLYCOL 17 GM PACKET PO SCH (21:52)
[2019-07-29] MEDS: GABAPENTIN 300 MG CAP PO SCH (21:52)
[2019-07-30] MEDS: HYDROCODONE/APAP (5/325) TAB PO PRN ×4 (00:21→18:27)
[2019-07-30 02:35] VITALS: BP 130/60; PULSE 71; RESP 18
[2019-07-30] MEDS: HYDROmorphONE 0.5 MG/0.5 ML SYG IV PRN ×3 (03:40→19:58)
[2019-07-30] MEDS: PANTOPRAZOLE (EC) 40 MG TAB PO SCH (06:53)
[2019-07-30 07:57] VITALS: BP 120/60; PULSE 72; RESP 18
[2019-07-30] MEDS: POLYETHYLENE GLYCOL 17 GM PACKET PO SCH ×2 (09:26→20:05)
[2019-07-30] MEDS: DOCUSATE SODIUM 100 MG CAP PO SCH ×2 (09:26→20:04)
[2019-07-30 14:37] VITALS: BP 128/62; PULSE 74; RESP 18
[2019-07-30] MEDS: DIPHENHYDRAMINE 50 MG INJ IV PRN ×2 (15:33→20:43)
[2019-07-30 19:40] VITALS: BP 119/59; PULSE 72; RESP 18
[2019-07-30] MEDS: GABAPENTIN 300 MG CAP PO SCH (20:04)
== END 2019-07-30 23:35 | disposition home or self-care (01) | DRG 520 ==
LOC: REC 05:52 → EDSTATUS 07:30 → MS1 11:13
PROVIDERS: ADMIT Orthopaedic Surgery Orthopaedic Surgery of the Spine; ATTEND Orthopaedic Surgery Orthopaedic Surgery of the Spine
PROC: 0SB40ZZ Excision of Lumbosacral Disc, Open Approach (ICD-10-PCS; 2019-07-28)
PROC: 01NR0ZZ Release Sacral Nerve, Open Approach (ICD-10-PCS; 2019-07-28)
PROC: 01NB0ZZ Release Lumbar Nerve, Open Approach (ICD-10-PCS; principal; 2019-07-28 07:30)
DX: M48.07 Spinal stenosis, lumbosacral region (principal); M51.17 Intervertebral disc disorders with radiculopathy, lumbosacral region; E66.01 Morbid (severe) obesity due to excess calories; Z68.37 Body mass index [BMI] 37.0-37.9, adult; F41.9 Anxiety disorder, unspecified; Z98.1 Arthrodesis status
CPT/HCPCS: 72100; 80048; 80061; 83036; 83735; 84100; 85025; 85610; 85730; 86850; 86900; 86901; 86999; 88304; 97116; 97162; 97530; J0690; J1170; J1200; J1644; J2001; J2175; J3010; J3480; J7120; V2790